=== PATIENT | female | born 1965 | race Caucasian/White ===

== ENCOUNTER 2021-10-28 13:24 | Outpatient (CLI) | payer OTHER | END 2021-10-28 13:25 | disposition home or self-care (01) | LOC: CSHLAB 13:24 | PROVIDERS: ATTEND Internal Medicine Gastroenterology | DX: Z20.822 Contact with and (suspected) exposure to COVID-19 (principal); K21.9 Gastro-esophageal reflux disease without esophagitis; Z12.11 Encounter for screening for malignant neoplasm of colon | CPT/HCPCS: U0003; U0005 ==

== ENCOUNTER 2021-10-31 06:15 | Day surgery (SDC) | payer OTHER ==
[2021-10-28 11:42] VITALS: BMI 21.2
[2021-10-31] MEDS ORDERED: Lidocaine 1% MPF 2 ML VIAL ONE (07:08)
[2021-10-31] MEDS ORDERED: PROPOFOL 40 ML ONE (08:01)
[2021-10-31] MEDS ORDERED: Fentanyl 100 MCG/2 ML VIAL ONE (08:01)
[2021-10-31] MEDS ORDERED: Lidocaine 1% PF 5 ML VIAL ONE (08:01)
[2021-10-31] MEDS ORDERED: PROPOFOL 20 ML ONE ×4 (08:25→09:00)
== END 2021-10-31 09:55 | disposition home or self-care (01) ==
LOC: CSHSDC 06:15
PROVIDERS: ATTEND Internal Medicine Gastroenterology
PROC: 0DBN8ZZ Excision of Sigmoid Colon, Via Natural or Artificial Opening Endoscopic (ICD-10-PCS; principal; 2021-10-31)
PROC: 0DB58ZX Excision of Esophagus, Via Natural or Artificial Opening Endoscopic, Diagnostic (ICD-10-PCS; principal; 2021-10-31)
DX: Z12.11 Encounter for screening for malignant neoplasm of colon (principal); K63.5 Polyp of colon; K64.9 Unspecified hemorrhoids; Q43.8 Other specified congenital malformations of intestine; K21.00 Gastro-esophageal reflux disease with esophagitis, without bleeding; K29.50 Unspecified chronic gastritis without bleeding; K44.9 Diaphragmatic hernia without obstruction or gangrene; K31.89 Other diseases of stomach and duodenum; F17.210 Nicotine dependence, cigarettes, uncomplicated; Z79.899 Other long term (current) drug therapy; Z88.5 Allergy status to narcotic agent
CPT/HCPCS: 88305; J2704; J3010

== ENCOUNTER 2021-12-05 11:41 | Outpatient (CLI) | payer OTHER | END 2021-12-05 11:42 | disposition home or self-care (01) | LOC: CSHLAB 11:41 | PROVIDERS: ATTEND Obstetrics & Gynecology | DX: Z01.818 Encounter for other preprocedural examination (principal); N81.11 Cystocele, midline; Z20.822 Contact with and (suspected) exposure to COVID-19 | CPT/HCPCS: 85027; 86850; 86900; 86901; 87811; 93005; 93010 ==

== ENCOUNTER 2021-12-10 10:50 | Day surgery (SDC) | payer OTHER ==
[2021-12-05 12:27] LABS: Hemoglobin 14.7 g/dL (12.0-15.5); Mean Corpuscular Hemoglobin 33.2 pg (27.0-33.0); Mean Corpuscular Volume 97.5 fl (81.6-98.3); Mean Platelet Volume 10.1 fl (7.4-10.4); Platelet Count 295 10x3/uL (150-450); RBC Distribution Width 14.6 % (11.5-14.5); Red Blood Cell (RBC) Count 4.43 10x6/uL (3.90-5.03); White Blood Cell (WBC) Count 10.1 10x3/uL (3.5-10.5)
[2021-12-09 10:55] VITALS: BMI 21.2
[2021-12-10] MEDS ORDERED: Lidocaine 1% MPF 2 ML VIAL ONE (11:01)
[2021-12-10] MEDS ORDERED: Fentanyl 250 MCG/5 ML VIAL ONE (12:03)
[2021-12-10] MEDS ORDERED: Midazolam HCl 2 mg/2 ml Vial ONE (12:03)
[2021-12-10] MEDS ORDERED: Rocuronium Bromide 10 MG/ML (10ML VIAL) ONE (12:03)
[2021-12-10] MEDS ORDERED: Lidocaine 1% PF 5 ML VIAL ONE (12:03)
[2021-12-10] MEDS ORDERED: Glycopyrrolate 0.2 MG/ML 5 ML SYRINGE ONE (12:03)
[2021-12-10] MEDS ORDERED: PROPOFOL 20 ML ONE (12:03)
[2021-12-10] MEDS ORDERED: Dexamethasone 4 mg/ml Vial ONE (12:03)
[2021-12-10] MEDS ORDERED: Ondansetron PF 4 MG/2 ML Vial ONE (12:03)
[2021-12-10] MEDS ORDERED: Ketorolac Tromethamine 30 MG/ML VIAL ONE (12:05)
[2021-12-10] MEDS ORDERED: Lidocaine 1% w/Epinephrine 1:100K 20 ML VIAL ONE (12:08)
[2021-12-10] MEDS ORDERED: Methylene Blue 50 MG/10 ML AMPUL ONE (12:09)
[2021-12-10] MEDS ORDERED: CEFAZOLIN 2 GM VIAL ONE (12:26)
== END 2021-12-10 15:25 | disposition home or self-care (01) ==
LOC: CSHSDC 10:50
PROVIDERS: ATTEND Obstetrics & Gynecology
PROC: 0TJB8ZZ Inspection of Bladder, Via Natural or Artificial Opening Endoscopic (ICD-10-PCS; principal; 2021-12-10)
PROC: 0JQC0ZZ Repair Pelvic Region Subcutaneous Tissue and Fascia, Open Approach (ICD-10-PCS; principal; 2021-12-10)
DX: N81.11 Cystocele, midline (principal); F41.9 Anxiety disorder, unspecified; K21.9 Gastro-esophageal reflux disease without esophagitis; Z79.899 Other long term (current) drug therapy; Z20.822 Contact with and (suspected) exposure to COVID-19
CPT/HCPCS: 85027; 86850; 86900; 86901; 87811; J0690; J1100; J1885; J2250; J2405; J2704; J3010; Q9968

== ENCOUNTER 2022-03-19 12:21 | Outpatient (CLI) | payer OTHER | END 2022-03-19 12:22 | disposition home or self-care (01) | LOC: CSHCP 12:21 | PROVIDERS: ATTEND Internal Medicine | DX: R91.1 Solitary pulmonary nodule (principal); J44.9 Chronic obstructive pulmonary disease, unspecified | CPT/HCPCS: 94060; 94726; 94729; 94760 ==